=== PATIENT | female | born 1980 | race Two or more races ===

== ENCOUNTER 2017-01-23 05:22 | Day surgery (SDC) | payer MEDICAID ==
[~2017-01-23 05:22] MED LIST: CYMBALTA30 M1 PO; CYMBALTA60 M1 PO; IBUPROFEN800 MG PO; IRON325 M2 PO; MACROBID 100 M100 M1 PO; MOBIC15 M2 PO; MULTI VITAMIN1 EAC2 PO; NEURONTIN300 M1 PO; OMEPRAZOLE20 M3 PO; OXYCODONE/APAP PO; PRENATAL VITAMI1 TAB PO; PROZAC20 M3 PO; TRAMADOL HCL50 M2 PO; TYLENOL EXTRA500 M1 PO
[2017-01-23 06:32] LABS: BASO % 0.5 % (0-2); BASO ABSOLUTE COUNT 0.1 tho/cmm (0.0-0.2); EOS % 4.9 % (0-7); EOSINOPHIL ABSOLUTE COUNT 0.5 tho/cmm (0.0-0.7); HCT-HEMATOCRIT 34.8 % (34.0-49.0); HGB-HEMOGLOBIN 11.4 gm/dl (12.0-15.5); IMMATURE GRANULOCYTES ABSOLUTE 0.01 tho/cmm (0-0.03); IMMATURE GRANULOCYTES PERCENT 0.1 % (0-0.3); LYMPH % 38.4 % (20-45); LYMPH ABSOLUTE COUNT 3.7 tho/cmm (0.8-4.5); MCH (MEAN CORPUSCULAR HGB) 28.1 pg (28.0-32.0); MCHC MEAN CORPUSCULAR HGB CONC 32.8 % (32.0-36.0); MCV (MEAN CELL VOLUME) 85.9 fl (82.0-96.0); MEAN PLATELET VOLUME 10.1 cmc (9.4-12.4); MONOCYTE ABSOLUTE COUNT 0.6 tho/cmm (0.0-1.2); NEUTROPHIL ABSOLUTE COUNT 4.8 tho/cmm (1.6-8.0); NEUTROPHIL-AUTOMATED 4.8 tho/cmm (1.6-8.0); NEUTROPHILS % 50.1 % (40-80); PLATELET COUNT 326 tho/cmm (150-450); RED BLOOD COUNT 4.05 mil/cmm (4.00-5.20); RED CELL DISTRIBUTION WIDTH 13.1 % (12.4-16.4); WHITE BLOOD COUNT 9.5 tho/cmm (4.0-10.0)
== END 2017-01-24 09:15 ==
LOC: SHSB 05:22 → ORW 07:54 → PACU 09:36 → SHSB 10:30 → CAR1 17:15
PROVIDERS: Surgery
PROC: 0WUF4JZ Supplement Abdominal Wall with Synthetic Substitute, Percutaneous Endoscopic Approach (ICD-10-PCS; principal; 2017-01-23)
DX: K42.9 Umbilical hernia without obstruction or gangrene (principal); M62.08 Separation of muscle (nontraumatic), other site; E78.5 Hyperlipidemia, unspecified; E66.9 Obesity, unspecified; M79.7 Fibromyalgia; G43.909 Migraine, unspecified, not intractable, without status migrainosus; F41.9 Anxiety disorder, unspecified; F32.9 Major depressive disorder, single episode, unspecified; K21.9 Gastro-esophageal reflux disease without esophagitis; Z68.38 Body mass index [BMI] 38.0-38.9, adult; Z79.899 Other long term (current) drug therapy; Z98.51 Tubal ligation status; Z98.890 Other specified postprocedural states
CPT/HCPCS: C1781; J0690; J1170; J3010